=== PATIENT | female | born 1985 | race Caucasian/White ===

== ENCOUNTER 2023-03-29 06:45 | Emergency (ER) | payer MEDICAID ==
[~2023-03-29] VITALS: Ht 160 cm; Wt 70.8 kg
[2023-03-29 07:26] VITALS: TEMP 98.6
[2023-03-29] MEDS ORDERED: PENI500T2 PO (07:58)
[2023-03-29 08:45] VITALS: BP 112/69; PULSE 81; RESP 15; O2SAT 100
== END 2023-03-29 09:55 | disposition home or self-care (01) ==
LOC: ER 06:46
DX: J06.9 Acute upper respiratory infection, unspecified (principal); Z79.899 Other long term (current) drug therapy; Z20.822 Contact with and (suspected) exposure to COVID-19
CPT/HCPCS: 36415; 87811; 99283

== ENCOUNTER 2023-05-16 16:13 | Emergency (ER) | payer MEDICAID ==
[~2023-05-16] VITALS: Ht 160 cm; Wt 70.3 kg
[2023-05-16 16:18] VITALS: BP 112/54; PULSE 72; RESP 16; O2SAT 100
[2023-05-16] MEDS ORDERED: dexamethasone sod phosphate 10mg/ml inj PO STA (16:24)
== END 2023-05-16 16:43 | disposition home or self-care (01) ==
LOC: ER 16:13
DX: L23.9 Allergic contact dermatitis, unspecified cause (principal); Z59.00 Homelessness unspecified
CPT/HCPCS: 99283; J1100